=== PATIENT | male | born 1950 | race Caucasian/White ===

== ENCOUNTER 2017-10-06 09:31 | Day surgery (SDC) | payer OTHER ==
[2017-10-06] MEDS: NS 1,000 ML IV (09:55)
[2017-10-06] MEDS ORDERED: PROPOFOL 200 MG/20 ML VIAL As Ordered ×2 (10:54→11:02)
== END 2017-10-06 11:46 | disposition home or self-care (01) ==
LOC: M OPP 09:31
DX: Z12.11 Encounter for screening for malignant neoplasm of colon (principal); D12.2 Benign neoplasm of ascending colon; K63.89 Other specified diseases of intestine; K64.0 First degree hemorrhoids; I10 Essential (primary) hypertension; E78.5 Hyperlipidemia, unspecified; Z79.899 Other long term (current) drug therapy
CPT/HCPCS: 45385

== ENCOUNTER → 2021-11-07 | Outpatient (CLI) | payer OTHER ==
[~2021-11-07] MED LIST: ATOR1TAB21; COLON HELPER PO; FISH1000 PO; FISH100049 PO; LISI20TA33; METO1TAB32; MULT1TAB10 PO; SAW1CAPS2 PO; VITA-243 PO; VITMTA PO
== END ==
LOC: M LABSMTC 09:41
PROVIDERS: ATTEND Anesthesiology
DX: Z11.52 Encounter for screening for COVID-19 (principal)

== ENCOUNTER 2021-11-12 12:30 | Day surgery (SDC) | payer MEDICARE ==
[~2021-11-12] VITALS: Ht 180.3 cm; Wt 108.9 kg
[~2021-11-12 12:30] MED LIST changes: +LIDOCAINE 2% 100MG/5ML SDV (FOR ANES.) As Ordered ONE; +NS 1,000 ML IV ONE; +propofoL 200 MG/20 ML VIAL As Ordered ONE
[2021-11-12 14:25] VITALS: BP 158/79
== END 2021-11-12 14:27 | disposition home or self-care (01) ==
LOC: M OPP 12:30
PROVIDERS: ATTEND Internal Medicine Gastroenterology
DX: D12.6 Benign neoplasm of colon, unspecified (principal); Z86.010 Personal history of colon polyps; K64.0 First degree hemorrhoids; K57.30 Diverticulosis of large intestine without perforation or abscess without bleeding; I10 Essential (primary) hypertension; E78.5 Hyperlipidemia, unspecified; Z79.899 Other long term (current) drug therapy

== ENCOUNTER → 2024-10-16 | Outpatient (CLI) | payer MEDICARE ==
[~2024-10-16] MED LIST changes: +ISOVUE-370 76% 100ML VIAL ONE; -LIDOCAINE 2% 100MG/5ML SDV (FOR ANES.) As Ordered ONE; -NS 1,000 ML IV ONE; -propofoL 200 MG/20 ML VIAL As Ordered ONE
== END ==
LOC: M PLAIMG 08:50
PROVIDERS: ATTEND Surgery
DX: K40.90 Unilateral inguinal hernia, without obstruction or gangrene, not specified as recurrent (principal)
CPT/HCPCS: 74177; Q9967

== ENCOUNTER 2024-12-04 10:03 | Day surgery (SDC) | payer MEDICARE ==
[~2024-12-04] VITALS: Ht 177.8 cm; Wt 108.5 kg
[~2024-12-04 10:03] MED LIST changes: -ATOR1TAB21; +ATOR1TAB21 PO; +BAYE81TA10 PO; -ISOVUE-370 76% 100ML VIAL ONE; +KP F1200 PO; +LIDOCAINE 2% 100MG/5ML SDV (FOR ANES.) As Ordered ONE; -LISI20TA33; +LISI20TA33 PO; +MENSCAP PO; -METO1TAB32; +METO1TAB32 PO; +POTA99CA2 PO; +RA N1TAB PO; +ROCURONIUM BROMIDE 50MG/5ML VIAL As Ordered ONE; +VITA268C PO; +VITA500C24 PO; +fentaNYL 100 MCG/2 ML INJECTION As Ordered ONE; +propofoL 200 MG/20 ML VIAL As Ordered ONE
[2024-12-04] MEDS ORDERED: BUPivacaine LIPOSOME/PF 266MG 20ML VIAL (13.3MG/ML)(EXPAREL) As Ordered ONE (10:52)
[2024-12-04] MEDS: LR 1,000 ML IV SCH (11:00)
[2024-12-04] MEDS: ceFAZolin SOD 2 GM IV ONCE IV ONE (11:03)
[2024-12-04] MEDS: HEPARIN SOD (PORCINE) 5000UNITS/ML 1ML VIAL/SYRINGE SQ ONE (11:50)
[2024-12-04] MEDS ORDERED: ACETAMINOPHEN 1000MG/100ML IV BAG As Ordered ONE (12:05)
[2024-12-04] MEDS ORDERED: ONDANSETRON 4MG 2ML VIAL As Ordered ONE (12:08)
[2024-12-04] MEDS ORDERED: HYDROmorphone HCL 2MG/ML 1ML VIAL As Ordered ONE (12:08)
[2024-12-04] MEDS ORDERED: PHENYLephrine 500MCG 5ML (100MCG/ML) SYRINGE As Ordered ONE (13:03)
[2024-12-04] MEDS ORDERED: ONDANSETRON 4MG 2ML VIAL IV PRN (15:05)
[2024-12-04] MEDS ORDERED: LR 1,000 ML IV SCH (15:05)
[2024-12-04] MEDS ORDERED: HYDROMORPHONE HCL 0.5 MG/ 0.5 ML SYRINGE IV PRN (15:05)
[2024-12-04] MEDS ORDERED: oxyCODONE 5MG TAB PO PRN (15:05)
[2024-12-04] MEDS ORDERED: fentaNYL 100 MCG/2 ML INJECTION IV PRN (15:05)
[2024-12-04 17:25] VITALS: BP 139/79; TEMP 97.1; O2SAT 96
== END 2024-12-04 17:35 | disposition home or self-care (01) ==
LOC: M SDC 10:03
PROVIDERS: ATTEND Surgery
DX: K40.30 Unilateral inguinal hernia, with obstruction, without gangrene, not specified as recurrent (principal); G47.9 Sleep disorder, unspecified; Z79.899 Other long term (current) drug therapy; Z87.891 Personal history of nicotine dependence
CPT/HCPCS: 49507; C1781; J0131; J0665; J0666; J0690; J1100; J1171; J2371; J2405; J3010; S2900